=== PATIENT | male | born 1975 | race Asian ===

== ENCOUNTER → 2017-02-14 | Outpatient (CLI) | payer OTHER ==
--- NOTE | ~2017-02-14 | CR63 ---
[facility] A Service of [facility] RADIOLOGY TEXT RESULTS PATIENT: HENRIQUE GUY LOCATION: [facility] : 71 UNIT #: [id number] AGE: [address]: VARSHA Rodríguez APRN SEX: M ORDER DR: [id number] [facility]. [place], [place] [address] [id number] O MR#: [id number] Acc #: [id number] NAME: HENRIQUE GUY : 1975 SEX: M STUDY DATE/TIME: 02/14/2017 15:03 UNIT: [facility] ROOM: STUDY DESCRIPTION: CR Chest 2 View Ordering Physician: Varsha Shaffer Aprn MEDICAL IMAGING REPORT This report is preliminary unless electronic signature is present EXAM Two-view chest HISTORY Cough, shortness of air x3 weeks. COMPARISON 11/26/2006. FINDINGS 2 views of the chest demonstrates apparent hereditary absence of the clavicles. Lungs are clear. Heart, mediastinum, great vessels unremarkable. There is also deformity of the thoracic vertebral bodies with multiple consecutive endplate deformities. Correlate clinically for risk factors. This could represent a manifestation of clidocranial dysostosis or clidocranial dysplasia. IMPRESSION 1. No acute cardiopulmonary disease. 2. Congenital absence of the clavicles. Correlate for congenital syndrome, such as clidocranial dysplasia. There is also mild deformity of the endplates at multiple thoracic and lumbar regions. This could also represent a manifestation of a congenital syndrome, correlate with patient's clinical history. Dictated by... Norm Garrido M.D. THIS IS AN ELECTRONICALLY VERIFIED REPORT Norm Garrido M.D. at 02/15/2017 8:24 AM [facility] A Service of [facility] RADIOLOGY TEXT RESULTS PATIENT: HENRIQUE GUY LOCATION: [facility] : 71 UNIT #: [id number] AGE: [address]: VARSHA Rodríguez, NARINDER SEX: M ORDER DR: Sergey TD: 02/14/2017 22:08 JOB #: [id number] MEDICAL IMAGING REPORT Page 1 of 1 COPY
== END | disposition home or self-care (01) ==
LOC: CRAD 14:25
DX: J20.9 Acute bronchitis, unspecified (principal); M43.8X5 Other specified deforming dorsopathies, thoracolumbar region; Q74.0 Other congenital malformations of upper limb(s), including shoulder girdle
CPT/HCPCS: 71020